=== PATIENT | female | born 1970 | race Caucasian/White ===

== ENCOUNTER → 2016-09-03 | Outpatient (CLI) | payer BC, OTHER | LOC: RAD 01:09 | DX: R92.2 Inconclusive mammogram (principal); N60.01 Solitary cyst of right breast ==

== ENCOUNTER → 2017-12-04 | Outpatient (CLI) | payer BC, OTHER | LOC: RAD 13:10 | DX: Z12.31 Encounter for screening mammogram for malignant neoplasm of breast (principal) ==

== ENCOUNTER → 2017-12-24 | Outpatient (CLI) | payer BC, OTHER | LOC: ULTRA 10:00 | DX: N60.01 Solitary cyst of right breast (principal); N60.02 Solitary cyst of left breast ==

== ENCOUNTER → 2018-05-26 | Outpatient (CLI) | payer BC, OTHER | LOC: ULTRA 15:24 → RAD 15:24 | DX: N60.01 Solitary cyst of right breast (principal); R92.2 Inconclusive mammogram; N63.11 Unspecified lump in the right breast, upper outer quadrant ==